=== PATIENT | female | born 1960 | race Caucasian/White ===

== ENCOUNTER 2020-09-11 08:46 | Emergency (ER) | payer MEDICARE, OTHER ==
--- NOTE | 2020-09-11 09:09 | ERPHSYRPT ---
- History of Present Illness Time Seen by Provider: 09/11/20 09:07 Source: patient Exam Limitations: no limitations Patient Subjective Stated Complaint: Arm injury Triage Nursing Assessment: Patient ambulated back to ED and transferred self to bed. Patient A+O X3. Patient's skin pink ,warm and dry. Patient complains of left shoulder/upper extremity pain 10/10. Patient has left arm in a homemade sling. Patient states last night she tripped on a rug causing her to hit her fridge. Patient has small bruise noted to left shoulder. Physician History: Patient complains of left shoulder/upper extremity pain 10/10. Patient has left arm in a homemade sling. Patient states last night she tripped on a rug causing her to hit her fridge. Patient has small bruise noted to left shoulder. Occurred: just prior to arrival Method of Injury: fell Quality: constant Severity of Pain-Max: moderate Severity of Pain-Current: moderate Extremities Pain Location: shoulder: left, arm: left Modifying Factors: Improves With: immobilization Associated Symptoms: none Allergies/Adverse Reactions: No Known Drug Allergies Allergy (Unverified 09/11/20 08:51) Home Medications: Aspirin 81 gm Chew [Baby Aspirin 81 mg Chew] 1 tab PO DAILY 09/11/20 [History] Citalopram Hydrobromide 20 mg* [ceLEXa 20 MG] 1 tab PO DAILY 09/11/20 [History] Furosemide 20 mg [Lasix 20 mg] 1 tab PO DAILY 09/11/20 [History] Gabapentin 1 tab PO TID 09/11/20 [History] Lisinopril 5 mg [Zestril 5 MG] 1 tab PO DAILY 09/11/20 [History] buPROPion HCL [Bupropion HCl] 1 tab PO DAILY 09/11/20 [History] Hx Influenza Vaccination/Date Given: Yes Hx Pneumococcal Vaccination/Date Given: No Immunizations Up to Date: Yes Travel Risk - International Travel Have you traveled outside of the country in past 3 weeks: No - Coronavirus Screening Are you exhibiting any of the following symptoms?: No Close contact with a COVID-19 positive Pt in past 14-21 Days: No - Vaccine Status Have you recieved a Covid-19 vaccination: Yes [employer]: [employer] - Review of Systems Constitutional: No Fever, No Chills Eyes: No Symptoms Ears, Nose, & Throat: No Symptoms Respiratory: No Cough, No Dyspnea Cardiac: No Chest Pain, No Edema, No Syncope Abdominal/Gastrointestinal: No Abdominal Pain, No Nausea, No Vomiting, No Diarrhea Genitourinary Symptoms: No Dysuria Musculoskeletal: Fall, Injury (left shoulder), No Back Pain, No Neck Pain Skin: No Rash Neurological: No Dizziness, No Focal Weakness, No Sensory Changes Psychological: No Symptoms Endocrine: No Symptoms All Other Systems: Reviewed and Negative - Past Medical History Neurological History: No Pertinent History Cardiac History: Hypertension Respiratory History: No Pertinent History Endocrine Medical History: No Pertinent History Musculoskeletal History: No Pertinent History - Past Surgical History Past Surgical History: Yes Neuro Surgical History: No Pertinent History Cardiac: No Pertinent History Respiratory: No Pertinent History Gastrointestinal: No Pertinent History Genitourinary: No Pertinent History Musculoskeletal: Orthopedic Surgery Female Surgical History: No Pertinent History Other Surgical History: back surgery X 2 - Social History Smoking Status: Current every day smoker How long have you smoked: years Exposure to second hand smoke: No Drug Use: none Patient Lives Alone: No - Female History Hx Now: No - Nursing Vital Signs Nursing Vital Signs: Initial Vital Signs Temperature 97.9 F 09/11/20 08:53 Pulse Rate 104 H 09/11/20 08:53 Respiratory Rate 18 09/11/20 08:53 Blood Pressure 152/105 09/11/20 08:53 O2 Sat by Pulse Oximetry 95 09/11/20 08:53 Pain Scale Pain Intensity 10 - Physical Exam General Appearance: alert Eyes, Ears, Nose, Throat Exam: moist mucous membranes Neck Exam: non-tender, supple Cardiovascular/Respiratory Exam: chest non-tender, normal breath sounds, regular rate/rhythm, no respiratory distress Abdominal Exam: non-tender, No guarding Back Exam: normal inspection, No vertebral tenderness Shoulder Exam: limited ROM (left shoulder), pain, soft tissue tenderness, No deformity Neuro/Tendon Exam: normal sensation, normal motor functions Mental Status Exam: alert, oriented x 3, cooperative Skin Exam: normal color, warm, dry SpO2: 95 Procedures - Splinting Location of Splint: Upper Arm Type of Splint: Velcro Splint Splint Applied By: ED Nurse Pre-Proc Neuro Vasc Exam: normal Post-Proc Neuro Vasc Exam: neurovascular intact - Course Nursing assessment & vital signs reviewed: Yes - Radiology Exams Shoulder X-ray Interpretation: Reviewed by me (subcapital humurus fracture left), Displaced Fracture (left humurus, subcapital) Ordered Tests: Active Orders 24 hr Category Date Time Status SHOULDER Stat Exams 09/11/20 09:06 Taken - Progress Progress: unchanged, pain not gone completely Counseled pt/family regarding: diagnosis, need for follow-up, rad results - Departure Departure Disposition: Home Clinical Impression: Closed left humeral fracture Qualifiers: Encounter type: initial encounter Humerus Location: greater tuberosity Fracture alignment: displaced Qualified Code(s): S42.252A - Displaced fracture of greater tuberosity of left humerus, initial encounter for closed fracture Condition: Stable Critical Care Time: No Referrals: ALONZO SIMMS MD [Primary Care Provider] - [facility], [facility]th[facility] M-[id number] Instructions: Shoulder Fracture (DC) Additional Instructions: Discharge/Care Plan NIA MCNAIR was seen on 09/11/20 in the Emergency Room. The patient was counseled regarding Diagnosis,Lab results, Imaging studies, need for follow up and when to return to the Emergency Room. Prescriptions given: Discharge Note I have spoken with the patient and/or caregivers. I have explained the patient's condition, diagnosis and treatment plan based on the information available to me at this time. I have answered the patient's and/or caregiver's questions and addressed any concerns. The patient and/or caregivers have as good understanding of the patient's diagnosis, condition and treatment plan as can be expected at this point. The vital signs have been stable. The patient's condition is stable and appropriate for discharge from the emergency department. The patient will pursue further outpatient evaluation with the primary care physician or other designated or consulting physician as outlined in the discharge instructions. The patient and/or caregivers are agreeable to this plan of care and follow-up instructions have been explained in detail. The patient and/or caregivers have received these instruction. The patient/and or caregivers are aware that any significant change in condition or worsening of symptoms should prompt an immediate return to this or the closest emergency department or call 911. NIA MCNAIR was seen on 09/11/20 n the Emergency Room. At that time you were treated for an emergent condition, during your visit Laboratory, Radiology and/or other procedures may have been ordered. It is very important that you follow-up with your Primary Care Physician ALONZO SIMMS MD within the next 24-48 hours to review your Emergency Room visit and the final results of testing that was ordered. Some test results such as Urine Cultures, Blood Cultures, and other cultures if ordered will not be finalized for 24-48 hours. If you do not have a Primary Care Provider please call the medical records department at [phone] to obtain a copy of your results or you may sign into our patient portal to obtain these results by visiting us @ [email or web address] and completing the following steps: 1. Click on the Patient Portal link 2. Click the Patient Self Enrollment Link to complete the enrollment form and entering your 3. Once the enrollment form is completed you will receive an email with a temporary ID and password at the email address you provided. 4. Next choose a user name and password. Your user name must be at least 4 characters long and your password must be at least 4 characters long. 5. Choose a security question from the list and provide your answer to the question. If you already have signed into the Health Portal you may access your Health Care Information 24/12 by the following steps: 1. Login to our website @ [email or web address] 2. Enter your original user name and password. FAQS The [facility] Health Portal is an online tool that contains your Lab Results, Radiology Reports, Visit History, Discharge Instructions and Health Summary Lab and Radiology Results will not be available for 72 hours on the portal. The Portal is a secure site, passwords are encryted and URLs are re-written so they cannot be copied and pasted. You and authorized family members are the only ones who can access your Portal. Also there is a timeout feature that protects your information if you leave the Portal page open. If you have technical difficulty please use the Contact Us link on the page this will allow you to submit any questions you have regarding the Portal or you may contact the Medical Record Department at [phone]. Prescriptions: Hydrocodone/Acetaminophen [Hydrocodone-Acetamin 5-325 mg ] 1 each PO QID #20 tablet MDD 4
[2020-09-11 09:51] VITALS: BP 152/89; PULSE 97; O2SAT 97
--- NOTE | 2020-09-11 22:42 | XRAY ---
Indication: Pain following fall. Comparison: None 3 view left shoulder demonstrates mildly comminuted humeral head fracture with mildly displaced lateral fracture fragment. Elsewhere minimal AC degenerative arthropathy and mild upper curvature scoliosis. No other bony, articular, or soft tissue abnormalities.
== END 2020-09-11 10:02 | disposition home or self-care (01) ==
LOC: ED 08:46
DX: S42.252A Displaced fracture of greater tuberosity of left humerus, initial encounter for closed fracture (principal); W01.198A Fall on same level from slipping, tripping and stumbling with subsequent striking against other object, initial encounter; Y93.9 Activity, unspecified; Y92.89 Other specified places as the place of occurrence of the external cause
CPT/HCPCS: 73030; 99283